=== PATIENT | female | born 2000 | race Two or more races ===

== ENCOUNTER → 2025-01-13 | Emergency (ER) | payer BC ==
[~2025-01-13] VITALS: Ht 175.3 cm; Wt 59.0 kg
[~2025-01-13] MED LIST: LIDOCAINE HCL 2% JELLY 6 ML SYRINGE MM ONE
[2025-01-13 09:07] LABS: BASO % 0.6 % (0.1-1.2); EOS # 0.01 (0.04-0.54); EOS % 0.1 % (0.7-7.0); HEMATOCRIT 37.4 % (34.1-44.9); HEMOGLOBIN 12.8 g/dL (11.2-15.7); LYMPH % 21.4 % (19.3-53.1); MONO # 0.83 (0.24-0.82); MONO % 8.9 % (4.7-12.5); NEUT # 6.41 (1.56-6.13); NEUT % 68.7 % (34.0-71.1); PLATELET COUNT 257 K/uL (163-369); RED BLOOD COUNT 4.27 M/uL (3.93-5.22); RED CELL DISTRIBUTION WIDTH 11.6 % (11.6-14.4)
== END | disposition left against medical advice (07) ==
LOC: ER 07:43
PROVIDERS: General Practice
DX: G89.11 Acute pain due to trauma (principal); R51.9 Headache, unspecified; S00.83XA Contusion of other part of head, initial encounter; W18.39XA Other fall on same level, initial encounter; Y93.89 Activity, other specified; Y92.520 Airport as the place of occurrence of the external cause